=== PATIENT | female | born 1995 | race Caucasian/White ===

== ENCOUNTER 2023-07-22 11:42 | Inpatient (IN) | payer SELFPAY ==
[~2023-07-22] VITALS: Ht 160 cm; Wt 55.8 kg
[2023-07-22] MEDS ORDERED: VANCOMYCIN 1G PREMIX 200 ML IV SCH (14:00)
[2023-07-22] MEDS ORDERED: IBUPROFEN 600MG TABLET PO ONE ×2 (14:00)
[2023-07-22 14:49] LABS: HCG SCREEN NEGATIVE
[2023-07-22 15:01] LABS: BASOPHILS % 0.8 % (0.0-2.0); EOSINOPHILS % 0.7 % (0.0-5.0); HEMATOCRIT. 40.1 % (36.0-48.0); HEMOGLOBIN. 13.8 g/dL (12.0-16.0); LYMPHOCYTES % 17.4 % (20.0-50.0); MEAN CORPUSCULAR HEMOGLOBIN 32.2 pg (28.0-32.0); MEAN CORPUSCULAR HGB CONC 34.5 g/dL (31.0-37.0); MEAN CORPUSCULAR VOLUME 93.3 fL (81.0-99.0); MEAN PLATELET VOLUME 9.4 fl (7.4-10.4); MONOCYTES % 3.6 % (2.0-8.0); NEUTROPHILS % 77.5 % (40.0-76.0); PLATELET 302 x1000/uL (130-400); RED CELL DISTRIBUTION WIDTH 13.3 % (11.6-14.6); WHITE BLOOD COUNT 9.3 x1000/uL (4.5-11.0)
[2023-07-22] MEDS ORDERED: DEXAMETHASONE 10 MG/ML VIAL IV ONE (17:00)
[2023-07-22] MEDS ORDERED: DIPHENHYDRAMINE 50MG/ML VIAL IV ONE (17:00)
[2023-07-22] MEDS ORDERED: CLINDAMYCIN 900 MG in DEXTROSE 5% WATER 50 ML IV ONE (17:30)
[2023-07-22 17:51] LABS: ALANINE AMINOTRANSFERASE 14 IU/L (10-49); ALBUMIN 4.6 g/dL (3.2-4.8); ASPARTATE AMINOTRANSFERASE 22 IU/L (<34); BILIRUBIN TOTAL 0.4 mg/dL (0.1-1.0); CALCIUM 9.6 mg/dL (8.7-10.4); CARBON DIOXIDE 21 mEq/L (21-32); CHLORIDE 108 mEq/L (98-107); CREATININE 0.5 mg/dL (0.6-1.0); GLUCOSE 88 mg/dL (70-105); POTASSIUM 3.4 mEq/L (3.5-5.1); PROTEIN TOTAL 7.8 g/dL (6.0-8.3); SODIUM 141 mEq/L (136-145); UREA NITROGEN BLOOD 7 mg/dL (9-23)
[2023-07-22] MEDS ORDERED: ONDANSETRON HCL 4MG/2ML INJ IV PRN (18:15)
[2023-07-22] MEDS ORDERED: HYDROCODONE/ACETAMINOPHEN 5/325MG TABLET PO PRN (18:15)
[2023-07-23] VITALS: BP 114/74; PULSE 81; RESP 16; TEMP 95.4
[2023-07-23] MEDS ORDERED: VANCOMYCIN 1G PREMIX 200 ML IV SCH ×2 (04:00→18:00)
[2023-07-23] MEDS ORDERED: CLINDAMYCIN 600 MG in DEXTROSE 5% WATER 50 ML IV SCH (04:00)
[2023-07-23 07:40] VITALS: BP 114/74; PULSE 81; RESP 16; TEMP 95.4
[2023-07-23 08:00] VITALS: BP 130/70; PULSE 104; RESP 20; TEMP 97.8
[2023-07-23 08:06] LABS: BASOPHILS % 0.1 % (0.0-2.0); HEMOGLOBIN. 12.1 g/dL (12.0-16.0); MEAN CORPUSCULAR HEMOGLOBIN 32.4 pg (28.0-32.0); MEAN CORPUSCULAR HGB CONC 34.7 g/dL (31.0-37.0); MEAN CORPUSCULAR VOLUME 93.6 fL (81.0-99.0); MEAN PLATELET VOLUME 9.6 fl (7.4-10.4); MONOCYTES % 3.6 % (2.0-8.0); NEUTROPHILS % 84.3 % (40.0-76.0); PLATELET 278 x1000/uL (130-400); RED BLOOD CELL COUNT 3.73 mill/uL (4.2-5.4); RED CELL DISTRIBUTION WIDTH 12.9 % (11.6-14.6); WHITE BLOOD COUNT 9.9 x1000/uL (4.5-11.0)
[2023-07-23 08:37] LABS: ALANINE AMINOTRANSFERASE 11 IU/L (10-49); ALBUMIN 4.1 g/dL (3.2-4.8); ASPARTATE AMINOTRANSFERASE 18 IU/L (<34); BILIRUBIN TOTAL 0.6 mg/dL (0.1-1.0); CALCIUM 9.3 mg/dL (8.7-10.4); CARBON DIOXIDE 24 mEq/L (21-32); CHLORIDE 106 mEq/L (98-107); CREATININE 0.4 mg/dL (0.6-1.0); GLUCOSE 83 mg/dL (70-105); POTASSIUM 3.8 mEq/L (3.5-5.1); PROTEIN TOTAL 6.8 g/dL (6.0-8.3); SODIUM 140 mEq/L (136-145); UREA NITROGEN BLOOD 8 mg/dL (9-23)
[2023-07-23] MEDS ORDERED: LIDOCAINE HCL/EPINEPHRINE 1%-EPI 1:100,000 20 ML VIAL INFIL NR (11:30)
[2023-07-23 12:00] VITALS: BP 127/71; PULSE 100; RESP 18; TEMP 98.4
[2023-07-23] MEDS ORDERED: CLIN-194 MT (13:55)
[2023-07-23] MEDS ORDERED: CLINDAMYCIN 600MG PREMIX 50 ML IV SCH ×2 (14:00)
[2023-07-23 14:07] VITALS: BP 127/71; PULSE 100; TEMP 98.2; O2SAT 100
== END 2023-07-23 14:54 | disposition home or self-care (01) | DRG 342 ==
LOC: ER 11:42 → EDBD 17:49 → 6EST 17:49 → EDBEDREQ 17:54 → EDBEDREQTM 17:54
PROVIDERS: ADMIT Internal Medicine; ATTEND Internal Medicine
DX: S62.91XA Unspecified fracture of right hand, initial encounter for closed fracture (principal); S61.411A Laceration without foreign body of right hand, initial encounter; X58.XXXA Exposure to other specified factors, initial encounter; Z88.0 Allergy status to penicillin
CPT/HCPCS: 36415; 73140; 80053; 84703; 85025; 99285; J1100; J1200; J3370; J3490; J7060

== ENCOUNTER 2023-08-03 08:58 | Emergency (ER) | payer SELFPAY ==
[~2023-08-03] VITALS: Ht 154.9 cm; Wt 54.0 kg
[~2023-08-03 08:58] MED LIST: CLIN-194 MT
[2023-08-03 09:06] VITALS: O2SAT 100
[2023-08-03 14:26] VITALS: BP 95/68; PULSE 63; RESP 16; TEMP 97.9
== END 2023-08-03 14:32 | disposition home or self-care (01) ==
LOC: ER 09:22
DX: S61.212D Laceration without foreign body of right middle finger without damage to nail, subsequent encounter (principal); Z88.0 Allergy status to penicillin; X58.XXXD Exposure to other specified factors, subsequent encounter
CPT/HCPCS: 99281; Z7610